=== PATIENT | male | born 1965 | race Caucasian/White ===

== ENCOUNTER 2017-08-16 11:34 | Emergency (ER) | payer OTHER, MEDICAID ==
[~2017-08-16] VITALS: Ht 165.1 cm; Wt 81.6 kg
[2017-08-16 11:47] VITALS: Ht 165.1 cm; Wt 81.6 kg
[2017-08-16 17:33] VITALS: BP 132/79
== END 2017-08-16 17:33 | disposition home or self-care (01) ==
LOC: ED 11:34
DX: J06.9 Acute upper respiratory infection, unspecified (principal)
CPT/HCPCS: 87804; J7613; J7644